=== PATIENT | female | born 1950 | race African-American/Black ===

== ENCOUNTER 2017-07-24 05:58 | Day surgery (SDC) | payer BC ==
[2017-07-23 13:46] VITALS: BMI 33.6
--- NOTE | 2017-07-24 04:36 | HP ---
SHORT STAY SUMMARY DATE OF ADMISSION: 07/24/2017 HISTORY OF PRESENT ILLNESS: Rossana Griffith is a very pleasant, 66-year-old with abdom inal pain, abdominal bloating for 2 weeks. The pain is worse after meals. Pain lasts for few hours. The pain is actually over the epigastric area going to the left upper quadrant. The patient's EGD in the past was found to have esophagitis . The patient still off and on. There is no dy sphagia or odynophagia. No history of rectal bleeding. The patient comes for an EGD because of abdo damian pain and also for colonoscopies. ALLERGIES: None. SOCIAL HISTORY: Patient does not smoke or drink alcohol. MEDICAL ILLNESSES: 1. Hypertension. 2. Hyperlipidemia. 3. Chronic acid reflux. 4. Breast cancer in 2014. PAST SURGICAL HISTORY: Status post right mastectomy, status post chemo and radiation therapy, status post hysterectomy. PHYSICAL EXAMINATION: VITAL SIGNS: Pulse is 70, blood pressure 130/80. HEENT: Conjunctivae clear. CARDIOVASCULAR SYSTEM: First and second heart sounds normal. LUNGS: Clear to auscultation. ABDOMEN: Soft to palpate. No organomegaly. Abdomen is tender over the epigastric area. There is n o rebound or guarding. ADMITTING DIAGNOSES: 1. Abdominal pain. 2. Colon cancer screening. PLAN: EGD and colonoscopy.
--- NOTE | 2017-07-24 10:10 | OP ---
DATE OF PROCEDURE: 07/24/2017 SURGEON: Olga Bonilla M.D. OPERATIVE PROCEDURE: Colonoscopy with polypectomy. PREOPERATIVE DIAGNOSIS: A 66-year-old -[place] female undergoing colonoscopy for colon cance r screening. POSTOPERATIVE DIAGNOSES: 1. Sigmoid diverticular disease. 2. Sessile polyp transverse colon. 3. Hypertrophic anal papilla. PROCEDURE IN DETAIL: The patient was placed on her left lateral position and was given sedation by A nesthesia Department. A rectal exam was done before the scope was advanced into the rectum. No lesi on felt on rectal exam. A Pentax video colonoscope was introduced in the rectum and advanced all the way to the cecum. The prep was very good. The mucosa appeared normal throughout the colon with nor mal vascular pattern. The appendiceal orifice, ileocecal valve, cecum, no pathology seen. The ascen ding colon, hepatic flexure, no pathology seen. A sessile transverse colon polyp removed with snare cautery with good hemostasis. The splenic flexure, descending colon, no pathology seen. The sigmoid colon showed scattered diverticula. The rectal mucosa has also some ____ spots.. The findings were nonspecific. Retroflexion does show presence of hypertrophied anal papilla. DISCHARGE PLANNING: This is a 66-year-old female who came in for colonoscopy and EG D. The colonoscopy showed a sessile transverse colon polyp that was removed. She also had some sigm oid diverticula. The EGD showed gastric ulcer, gastric erosions. She also had a duodenal ulcer and an ulcer in GE junction. The patient did well post procedure, and is being discharged. DISCHARGE INSTRUCTIONS: 1. Omeprazole 40 once a day. 2. No NSAID medication. 3. Will await gastric biopsy and decide further treatment. 4. The patient was advised to call me if he develops abdominal pain, hematochezia or fever.
--- NOTE | 2017-07-24 10:13 | OP ---
DATE OF PROCEDURE: 07/24/2017 SURGEON: Olga Bonilla M.D. OPERATIVE PROCEDURE: Esophagogastroduodenoscopy with biopsy. PREOPERATIVE DIAGNOSIS: Abdominal pain. POSTOPERATIVE DIAGNOSES: 1. Gastric ulcer, gastric erosions. 2. Ulcer in the duodenal bulb. 3. Ulcer in the GE junction with esophagitis. PROCEDURE IN DETAIL: The patient was placed on her left lateral position under given sedation by Kelsie shearer. A Pentax video gastroscope under direct vision was passed down the oropharynx to the GE idalia ction, into the stomach and subsequently in the descending duodenum. The esophageal mucosa appears n ormal throughout the esophagus. At the GE junction the patient had ulceration with mucosal edema and erythema. The fundus and cardia, no pathology seen. The gastric body, no pathology seen. The johnathan bryanna antrum showed gastric ulcer with erosions and gastritis. A biopsy of the gastric antrum and johnathan bryanna body. The duodenal bulb showed ulceration in the bulb. The descending duodenum, no pathology se en. The stomach was decompressed and the scope removed. DISCHARGE PLANNING: This is a 66-year-old female who came for EGD and a colonoscopy . The EGD showed a gastric ulcer, also the GE junction and also a duodenal ulcer. The colonoscopy s howed a sessile transverse colon polyp. DISCHARGE RECOMMENDATIONS: 1. Omeprazole 40 once a day. 2. The patient will come back to me in 2 weeks.
[2017-07-24] MEDS ORDERED: Lidocaine 1% PF 5 ML VIAL ONE (20:02)
[2017-07-24] MEDS ORDERED: PROPOFOL 200 MG/20 ML VIAL ONE (20:02)
== END 2017-07-24 09:32 | disposition home or self-care (01) ==
LOC: SDC 05:58
PROVIDERS: ATTEND Internal Medicine Gastroenterology
PROC: 0DB68ZX Excision of Stomach, Via Natural or Artificial Opening Endoscopic, Diagnostic (ICD-10-PCS; principal; 2017-07-24)
PROC: 0DBL8ZX Excision of Transverse Colon, Via Natural or Artificial Opening Endoscopic, Diagnostic (ICD-10-PCS; principal; 2017-07-24)
DX: D12.3 Benign neoplasm of transverse colon (principal); R10.13 Epigastric pain; K62.89 Other specified diseases of anus and rectum; K57.30 Diverticulosis of large intestine without perforation or abscess without bleeding; I10 Essential (primary) hypertension; E78.5 Hyperlipidemia, unspecified; K21.9 Gastro-esophageal reflux disease without esophagitis; Z90.710 Acquired absence of both cervix and uterus; Z90.11 Acquired absence of right breast and nipple; Z85.3 Personal history of malignant neoplasm of breast; Z92.21 Personal history of antineoplastic chemotherapy; Z92.3 Personal history of irradiation
CPT/HCPCS: 88305; 88312; J2001; J2704

== ENCOUNTER 2017-10-29 12:28 | Outpatient (CLI) | payer BC ==
[~2017-10-29 12:28] MED LIST: Gadobenate Dimeglumine 529 MG/1 ML (20ML VIAL) ONE
--- NOTE | 2017-10-29 14:57 | MRI ---
MRI LUMBAR SPINE WITH AND WITHOUT GADOLINIUM CONTRAST: Date: 10/29/17 HISTORY: Low back pain with right leg radiculopathy. Breast cancer. FINDINGS: Conus medullaris has a normal appearance. Vertebral body heights are maintained. Mild discogenic end plate changes within the bone marrow. T12-L1, L1-2, L3-4: Osteophytosis. Central canal and neural foramina are patent. L2-3: Very mild disc bulge. Osteophytosis of the facets. Thecal sac and neural foramina are patent. L4-5: Minimal degenerative spondylolisthesis and posterior pseudobulge of the intervertebral disc. Disc and circumferential degenerative changes result in mild stenosis of the central canal and each neural fo ramen. Small annular fissure within the posterior disc. Fluid and inflammation are associated with ea ch facet. L5-S1: Focal right posterior paracentral protrusion of the intervertebral disc compressing the origin of the right S1 nerve root. Degenerative changes of the facets. Thecal sac and neural foramina remain paten t. IMPRESSION: 1. Focal right posterior paracentral protrusion of the disc at the lumbosacral junction compresses t he right S1 nerve root origin. Clinical correlation regarding the right S1 dermatome is required. 2. Other multilevel degenerative changes of the lumbar spine, including mild central canal and farhan inal stenosis as detailed above. POS: [facility]
--- NOTE | 2017-10-29 15:04 | MRI ---
MRI RIGHT HIP PERFORMED WITH AND WITHOUT CONTRAST ENHANCEMENT: HISTORY: Right hip pain. History of breast cancer. FINDINGS: The SI joints are symmetric in appearance. There are arthritic changes of the symphysis region. No signs of any pelvic insufficiency type fractures. Suggestion of some slight bladder wall thickening, which may be just on the basis of under-distention. Some minimal arthritic changes of the left hip noted. Small field of view images of the right hip were performed. There is no abnormal marrow signal mcgill e that would suggest metastatic disease. No soft tissue mass is seen. Due to body habitus, the labrum is not well assessed, although there is suggestion that the anterior- superior labrum is slightly truncated. There is a subchondral cyst of the acetabulum. There is a lo w grade partial tear of the gluteus minimus insertion and a slightly more prominent mid grade tear of the gluteus medius tendon insertion. There are some mild tendinopathy changes of the hamstring tendon origins. These changes are slightly more prominent on the right side, with a low grade tear also seen of the proximal hamstring attachme nt. IMPRESSION: 1. Degenerative changes of the hip. There is what appears to be fraying of the hip labrum, with michael e subchondral cystic change. 2. Low grade partial tear of the gluteus minimus tendon insertion on the greater trochanter, and mid grade partial tear of the gluteus medius tendon insertion. 3. Mild hamstring tendinopathy with a low grade partial tear of the right hamstring tendon origin. 4. No evidence for metastatic disease. POS: [facility]
== END 2017-10-29 12:29 | disposition home or self-care (01) ==
LOC: SCSMRI 12:28
PROVIDERS: ATTEND Internal Medicine Hematology & Oncology
DX: C50.411 Malignant neoplasm of upper-outer quadrant of right female breast (principal); M25.551 Pain in right hip; M54.5 Low back pain; M16.11 Unilateral primary osteoarthritis, right hip; M47.896 Other spondylosis, lumbar region; M48.061 Spinal stenosis, lumbar region without neurogenic claudication; M99.83 Other biomechanical lesions of lumbar region; M51.27 Other intervertebral disc displacement, lumbosacral region; S76.011A Strain of muscle, fascia and tendon of right hip, initial encounter; S76.911A Strain of unspecified muscles, fascia and tendons at thigh level, right thigh, initial encounter
CPT/HCPCS: 72158; 82565; A9579

== ENCOUNTER 2017-12-07 17:33 | Emergency (ER) | payer BC ==
[2017-12-07 18:09] LABS: Anisocytosis SLIGHT = 6-15 cells (100X) (0-5/hpf); Band 2 % (5-11); Elliptocytes SLIGHT = 2-5 cells (100X) (0-1/hpf); Eosinophils 2 % (0-10); Hemoglobin 13.3 g/dL (12.0-16.0); Hypochromia SLIGHT = 6-15 cells (100X) (0-5/hpf); Lymphocytes 32 % (21-51); MDiff Complete? YES; Mean Corpuscular HGB CONC 30.3 g/dL (32.0-36.0); Mean Corpuscular Hemoglobin 21.7 pg (27.0-31.0); Mean Corpuscular Volume 71.8 fL (78.0-98.0); Mean Platelet Volume 8.8 fL (7.4-10.4); Microcytosis SLIGHT = 6-15 cells (100X) (0-5/hpf); Monocytes 8 % (0-10); Neutrophil 53 % (42-75); PLT Morphology Comment Appears Adequate; Platelet Count 238 thou/uL (130-400); RBC Distribution Width 13.2 % (11.5-14.5); Reactive Lymphocytes 2 % (0-10); Red Blood Cell (RBC) Count 6.12 mill/uL (4.20-5.40); White Blood Cell (WBC) Count 5.5 thou/uL (4.8-10.8)
[2017-12-07 18:14] LABS: CKMB 2.6 ng/mL (0-6.6); Troponin I Less than 0.010 ng/mL (< 0.028)
[2017-12-07 18:15] LABS: ALT (SGPT) 15 U/L (8-55); AST (SGOT) 24 U/L (5-34); Albumin 4.4 g/dL (3.4-4.8); Alkaline Phosphatase 94 U/L (40-150); Anion Gap 16 mmol/L (10-20); BUN (Urea Nitrogen) 18 mg/dL (9.8-20.1); Bilirubin, Total 0.3 mg/dL (0.2-1.2); CK (CPK) 246 U/L (29-168); Calc. Creatinine Clearance 0 mL/min (70-130); Calcium 10.2 mg/dL (7.8-10.44); Carbon Dioxide 23 mmol/L (23-31); Chloride 101 mmol/L (98-107); Estimated GFR-MDRD 71; Globulin 3.7 g/dL (2.4-3.5); Glucose 108 mg/dL (80-115); Lipase 21 U/L (8-78); Potassium 3.8 mmol/L (3.5-5.1); Protein, Total 8.1 g/dL (6.0-8.3); Sodium 136 mmol/L (136-145)
--- NOTE | 2017-12-07 19:05 | RAD ---
AP VIEW CHEST: 12/07/2017 HISTORY: Chest pain. FINDINGS: AP view chest demonstrates the lungs to be well aerated. No evidence of active intrathoracic disease is seen. No evidence of effusions, pneumonia, or pneumothorax is seen. IMPRESSION: Normal anterior-posterior view chest. POS: [facility]
== END 2017-12-07 19:54 | disposition home or self-care (01) ==
LOC: SCSER 17:33
DX: R42 Dizziness and giddiness (principal); R09.81 Nasal congestion; B34.9 Viral infection, unspecified; E78.5 Hyperlipidemia, unspecified; I10 Essential (primary) hypertension; Z79.899 Other long term (current) drug therapy
CPT/HCPCS: 71045; 80053; 82550; 82553; 83690; 84484; 85025; 85379; 93005; 94760